=== PATIENT | male | born 1980 ===

== ENCOUNTER 2022-04-15 01:22 | Emergency (ER) | payer SELFPAY ==
[2022-04-15 01:29] VITALS: BP 160/94; PULSE 123; RESP 18; TEMP 36.4; O2SAT 100
--- NOTE | 2022-04-15 01:32 | PC.NURSE ---
patient came back to desk after triage requesting a buzzer so he can just wait in my car and be buzzed when its my turn educated that we dont have that here patient stated he will just go home and try to go to sleep as he doesnt want to wait
== END 2022-04-15 02:16 | disposition left against medical advice (07) ==
DX: R20.2 Paresthesia of skin (principal)
CPT/HCPCS: 99199